=== PATIENT | male | born 1985 | race Caucasian/White ===

== ENCOUNTER 2018-08-15 10:47 | Emergency (ER) | payer BC, SELFPAY ==
--- OUTSIDE RECORDS SUMMARY | 2018-08-15 10:59 | XMS REPORT | Summary of Care ---
:1985 Author Organization [facility] Address [address] [place], [place] [address]- Encounter HQ Encntr_alias(FIN) [id number] Date(s): 04/22/17 - 04/22/17 [facility] [address] [place] [address]- Encounter Diagnosis Right upper quadrant pain (Final) - 04/28/17 Epigastric pain (Final) - Nausea with vomiting, unspecified (Final) - Abnormal weight loss (Final) - Discharge Disposition: Home or Self Care Attending Physician: Carter Shaikh MD Referring Physician: Carter Shaikh MD Vital Signs No data available for this section Problem List No data available for this section Allergies, Adverse Reactions, Alerts No data available for this section Medications No data available for this section Results No data available for this section Immunizations No data available for this section Procedures No data available for this section Social History No data available for this section Assessment and Plan No data available for this section
--- OUTSIDE RECORDS SUMMARY | 2018-08-15 10:59 | XMS REPORT | Continuity of Care Document ---
:1985 Author Organization [facility] [employer] [place] Care Team Providers Name Role Phone [facility] [employer] Unavailable Unavailable Problems Problem Status Onset Classification Date Comments Source Date Reported Right upper 03/16/2018 [facility] quadrant pain 8 R10.11 R10.13 Active [facility] R11.2 R63.4 8 Epigastric pain 03/16/2018 [facility] Nausea with 03/16/2018 [facility] vomiting, unspecified Abnormal weight 03/16/2018 [facility] loss Medications No Data Provided for This Section Allergies, Adverse Reactions, Alerts No Known Medication Allergies Immunizations No Data Provided for This Section Results No Data Provided for This Section Pathology Reports No Data Provided for This Section Diagnostic Reports Report Value Date Source Gallbladder scan HIDA w EXAM: Gallbladder HIDA scan 04/22/2017 [facility] [place] HISTORY: Nausea, vomiting, epigastric pain COMPARISON: None TECHNIQUE: Hepatobiliary scan is performed using 7 mCi of Tc-99m Choletec given IV right antecubital region. 1.8 mcg CCK given IV following 60 minutes; no symptoms reported. FINDINGS: Normal tracer activity in the liver, bile ducts, gallbladder, and small bowel loops. Gallbladder ejection fraction is 91% (normal greater than 50%). IMPRESSION: Normal HIDA scan and gallbladder ejection. SL: [id number] Consultation Notes No Data Provided for This Section Discharge Summaries No Data Provided for This Section History and Physicals No Data Provided for This Section Vital Signs No Data Provided for This Section Encounters Location Location Encounter Encounter Reason Attending ADM DC Status Source Details Type Number For Provider Date Date Visit [facility] Outpatient [id number] [facility] 04[facility]22 [facility] Procedures No Data Provided for This Section Assessment and Plan No Data Provided for This Section Plan of Care No Data Provided for This Section Social History Social History Date Source No data available for this 04/23/2017 [facility] section Family History No Data Provided for This Section Advance Directives No Data Provided for This Section Functional Status No Data Provided for This Section
--- OUTSIDE RECORDS SUMMARY | 2018-08-15 10:59 | XMS REPORT | Summary of Care ---
:1985 Author Organization [facility] Address [address] [place], [place] [address]- Encounter HQ Encntr_alias(FIN) [id number] Date(s): 04/22/17 - 04/22/17 [facility] [address] [place] [address]- Encounter Diagnosis Right upper quadrant pain (Final) [...]
--- NOTE | 2018-08-15 11:36 | RAD REPORT ---
EXAM DESCRIPTION: CT - Head Brain Wo Cont - 08/15/2018 11:29 am CLINICAL HISTORY: Acute onset visual changes COMPARISON: None. TECHNIQUE: Axial 5 mm thick images of the head were obtained without IV contrast. All CT scans are performed using dose optimization technique as appropriate and may include automated exposure control or mA/KV adjustment according to patient size. FINDINGS: No intracranial hemorrhage, mass, edema or shift of mid-line structures. No acute infarcti on changes seen. No abnormal extra-axial fluid collections. Ventricles are normal. Mastoid air cells are clear. Circumferential mucosal thickening present in the right maxillary sinus with thickening and sclerosis of the sinus black. No air-fluid level. No acute bony findings. IMPRESSION: No intracranial abnormality identified. Right maxillary chronic sinusitis.
[2018-08-15 11:53] LABS: ALT/SGPT 58 U/L (12-78); AST/SGOT 28 U/L (15-37); Albumin 4.2 g/dL (3.4-5.0); Alkaline Phosphatase 57 U/L (45-117); BUN Blood Urea Nitrogen 17 mg/dL (7-18); Bicarbonate 29 mmol/L (21-32); Bilirubin Total 0.7 mg/dL (0.2-1.0); Glucose Level 96 mg/dL (74-106); Protein, Total 7.7 g/dL (6.4-8.2); Sodium Level 140 mmol/L (136-145); Troponin (Emerg Dept Use Only) < 0.02 ng/mL (0.0-0.045)
--- NOTE | 2018-08-15 12:52 | ER ---
Nurse's Notes [facility] Name: Ramez Nguyen Age: 33 yrs Sex: Male : 1985 Arrival Date: 08/15/2018 Time: 10:48 Bed 16 Private MD: Diagnosis: Amaurosis fugax Presentation: 08/15 10:57 Presenting complaint: Patient states: at about 1000 this morning visual changes, was sg described as like tunnel vision in both eyes with darkened areas around the peripheral, pt denied and pain/n/v, no slurred speech no LOC, pt reports was signing documents when his vision just went crazy. Transition of care: patient was not received from another setting of care. Onset of symptoms was August 15, 2018. Risk Assessment: Do you want to hurt yourself or someone else? Patient reports no desire to harm self or others. Initial Sepsis Screen: Does the patient meet any 2 criteria? No. Patient's initial sepsis screen is negative. Does the patient have a suspected source of infection? No. Patient's initial sepsis screen is negative. Care prior to arrival: None. 10:57 Method Of Arrival: Ambulatory sg 10:57 Acuity: WENDY 3 sg 11:01 Note reports pain in forehead that radiates to back of head and neck, a 2/10. sg Historical: - Allergies: 11:00 Morphine; sg - Home Meds: 11:00 losartan oral oral [Active]; testosterone buccal buccal [Active]; "water pill"- I dont sg take it though, too strong [Active]; - PMHx: 11:01 Hypertension; sg - PSHx: 11:00 facial reconstruction; sg - Immunization history:: Adult Immunizations up to date. - Social history:: Smoking status: Patient/guardian denies using tobacco, Patient uses caffeine, Patient/guardian denies using alcohol, street drugs, Patient/guardian denies using The patient lives with family, with spouse. - Ebola Screening: : Patient negative for fever greater than or equal to 101.5 degrees Fahrenheit, and additional compatible Ebola Virus Disease symptoms Patient denies exposure to infectious person Patient denies travel to an Ebola-affected area in the 21 days before illness onset No symptoms or risks identified at this time. - Family history:: not pertinent. Screenin:05 VAN Screening: Arm Drift: Patient shows no arm weakness. Patient is VAN negative. Fall sg Risk None identified. 11:15 Abuse screen: Denies threats or abuse. Denies injuries from another. Nutritional ca1 screening: No deficits noted. Tuberculosis screening: No symptoms or risk factors identified. Assessment: 11:15 General: Appears in no apparent distress. comfortable, Behavior is calm, cooperative, ca1 appropriate for age. Pain: Denies pain. Neuro: Level of Consciousness is awake, alert, obeys commands, Oriented to person, place, time, situation, Sueding Machine Tender are equal bilaterally Moves all extremities. Gait is steady, Speech is normal, Facial symmetry appears normal. Cardiovascular: Heart tones S1 S2 present Capillary refill < 3 seconds Patient's skin is warm and dry. Respiratory: Airway is patent Respiratory effort is even, unlabored, Respiratory pattern is regular, symmetrical, Breath sounds are clear bilaterally. GI: Abdomen is flat, non-distended, Bowel sounds present X 4 quads. Abd is soft and non tender X 4 quads. : No deficits noted. No signs and/or symptoms were reported regarding the genitourinary system. EENT: Reports blurred vision. Derm: Skin is intact, is healthy with good turgor, Skin is pink, warm \\T\\ dry. Musculoskeletal: Circulation, motion, and sensation intact. Capillary refill < 3 seconds, Range of motion: intact in all extremities. 11:56 Reassessment: Patient appears in no apparent distress at this time. Patient and/or ca1 family updated on plan of care and expected duration. Pain level reassessed. Patient is alert, oriented x 3, equal unlabored respirations, skin warm/dry/pink. 12:50 Reassessment: Patient appears in no apparent distress at this time. Patient and/or ca1 family updated on plan of care and expected duration. Pain level reassessed. Patient is alert, oriented x 3, equal unlabored respirations, skin warm/dry/pink. 13:47 Reassessment: Patient appears in no apparent distress at this time. Patient and/or ca1 family updated on plan of care and expected duration. Pain level reassessed. Patient is alert, oriented x 3, equal unlabored respirations, skin warm/dry/pink. Called report to Nany Perkins RN with [facility]. 14:11 Reassessment: Patient appears in no apparent distress at this time. Patient is alert, ca1 oriented x 3, equal unlabored respirations, skin warm/dry/pink. Vital Signs: 11:01 BP 125 / 90; Pulse 85; Resp 17; Temp 97.6; Pulse Ox 100% on R/A; Weight 95.25 kg (R); sg Height 5 ft. 10 in. (177.80 cm); Pain 2/10; 11:56 BP 119 / 81; Pulse 82; Resp 16 S; Pulse Ox 97% on R/A; ca1 12:32 BP 120 / 82; Pulse 76; Resp 17 S; Pulse Ox 97% on R/A; ca1 13:31 BP 128 / 92; Pulse 62; Resp 17 S; Pulse Ox 98% on R/A; ca1 14:11 BP 122 / 85; Pulse 70; Resp 16 S; Temp 98(O); Pulse Ox 97% on R/A; ca1 11:01 Body Mass Index 30.13 (95.25 kg, 177.80 cm) sg NIH Stroke Scale Scores: 11:05 NIHSS Score: 0 ED Course: 10:48 Patient arrived in ED. as 10:51 Ward Murphy MD is Attending Physician. ma2 10:59 Triage completed. sg 10:59 Arm band placed on. sg 11:01 Christina Daugherty, RN is Primary Nurse. ca1 11:15 Patient has correct armband on for positive identification. Placed in gown. Bed in low ca1 position. Call light in reach. Side rails up X 1. Pulse ox on. NIBP on. Door closed. Lights dimmed. Warm blanket given. 11:18 No provider procedures requiring assistance completed. Inserted saline lock: 20 gauge ca1 in left antecubital area, using aseptic technique. Blood collected. 11:30 CT Head Brain wo Cont In Process Unspecified. EDMS 13:35 Patient transferred, IV remains in place. ca1 Administered Medications: 12:50 Drug: Aspirin 325 mg Route: PO; ca1 13:34 Follow up: Response: No adverse reaction ca1 Outcome: 12:51 ER care complete, transfer ordered by . ma2 14:12 Transferred by ground EMS to [facility], Transfer form completed. ca1 X-rays sent w/ patient. 14:12 Condition: stable 14:12 Instructed on the need for transfer. 14:13 Patient left the ED. ca1 NIH Stroke Scale - NIH Stroke Score Date: 08/15/2018 Time: 11:05 Total Score = 0 1a. Level of Consciousness (LOC) - 0(Alert) 1b. Level of Consciousness (LOC) (Year \\T\\ Age) - 0(Both) 1c. LOC Commands (Open \\T\\ Closes Eyes/Care Management Assistant) - 0(Both) 2. Best Gaze (Lateral Gaze Paresis) - 0(Normal) 3. Visual Field Loss - 0(No visual loss) 4. Facial Palsy - 0(Normal) 5a. Left Arm: Motor (10-second hold) - 0(No drift) 5b. Right Arm: Motor (10-second hold) - 0(No drift) 6a. Left Leg: Motor (5-second hold - always test supine) - 0(No drift) 6b. Right Leg: Motor (5-second hold - always test supine) - 0(No drift) 7. Limb Ataxia (finger/nose \\T\\ heel/winn - test with eyes open) - 0(Absent) 8. Sensory Loss (pinprick arms/legs/face) - 0(Normal) 9. Best Language: Aphasia (description/naming/reading) - 0(No aphasia) 10. Dysarthria (speech clarity - read or repeat words) - 0(Normal) 11. Extinction and Inattention (visual/tactile/auditory/spatial/personal) - 0(No abnormality) Initials: sg Signatures: Dispatcher [employer] Silvio Bolden RN RN sg Elicia Villaseñor Mohammad, MD MD ma2 Christina Daugherty RN RN ca1
--- NOTE | 2018-08-15 12:52 | EDPHYS ---
Physician Documentation [facility] Name: Ramez Nguyen Age: 33 yrs Sex: Male : 1985 Arrival Date: 08/15/2018 Time: 10:48 Bed 16 Private MD: ED Physician Ward Murphy HPI: 08/15 12:46 This 33 yrs old Male presents to ER via Ambulatory with complaints of Loss Of ma2 Vision, Confusion. 12:46 Onset: The symptoms/episode began/occurred suddenly, 2 hour(s) ago. Associated signs ma2 and symptoms: Pertinent negatives: None. dizziness, headache. Patient does not utilize any form of vision correction. Severity of symptoms: At their worst the symptoms were severe in the emergency department the symptoms have resolved. The patient has not experienced similar symptoms in the past. sudden loss of vision of right upper quadrant visual field of both eyes. this is resolved and now he is back no normal . Historical: - Allergies: 11:00 Morphine; sg - Home Meds: 11:00 losartan oral oral [Active]; testosterone buccal buccal [Active]; "water pill"- I dont sg take it though, too strong [Active]; - PMHx: 11:01 Hypertension; sg - PSHx: 11:00 facial reconstruction; sg - Immunization history:: Adult Immunizations up to date. - Social history:: Smoking status: Patient/guardian denies using tobacco, Patient uses caffeine, Patient/guardian denies using alcohol, street drugs, Patient/guardian denies using The patient lives with family, with spouse. - Ebola Screening: : Patient negative for fever greater than or equal to 101.5 degrees Fahrenheit, and additional compatible Ebola Virus Disease symptoms Patient denies exposure to infectious person Patient denies travel to an Ebola-affected area in the 21 days before illness onset No symptoms or risks identified at this time. - Family history:: not pertinent. ROS: 12:46 Constitutional: Negative for fever, chills, and weight loss. ma2 12:46 All other systems are negative. Exam: 12:46 Visual Acuity: Visual acuity is within normal limits. ma2 12:46 Constitutional: This is a well developed, well nourished patient who is awake, alert, and in no acute distress. Head/Face: Normocephalic, atraumatic. Eyes: Pupils equal round and reactive to light, extra-ocular motions intact. Lids and lashes normal. Conjunctiva and sclera are non-icteric and not injected. Cornea within normal limits. Periorbital areas with no swelling, redness, or edema. ENT: Nares patent. No nasal discharge, no septal abnormalities noted. Tympanic membranes are normal and external auditory canals are clear. Oropharynx with no redness, swelling, or masses, exudates, or evidence of obstruction, uvula midline. Mucous membranes moist. Neck: Trachea midline, no thyromegaly or masses palpated, and no cervical lymphadenopathy. Supple, full range of motion without nuchal rigidity, or vertebral point tenderness. No Meningismus. Chest/axilla: Normal chest wall appearance and motion. Nontender with no deformity. No lesions are appreciated. Cardiovascular: Regular rate and rhythm with a normal S1 and S2. No gallops, murmurs, or rubs. Normal PMI, no JVD. No pulse deficits. Respiratory: Lungs have equal breath sounds bilaterally, clear to auscultation and percussion. No rales, rhonchi or wheezes noted. No increased work of breathing, no retractions or nasal flaring. Abdomen/GI: Soft, non-tender, with normal bowel sounds. No distension or tympany. No guarding or rebound. No evidence of tenderness throughout. MS/ Extremity: Pulses equal, no cyanosis. Neurovascular intact. Full, normal range of motion. Neuro: Awake and alert, GCS 15, oriented to person, place, time, and situation. Cranial nerves II-XII grossly intact. Motor strength 5/5 in all extremities. Sensory grossly intact. Cerebellar exam normal. Normal gait. Vital Signs: 11:01 BP 125 / 90; Pulse 85; Resp 17; Temp 97.6; Pulse Ox 100% on R/A; Weight 95.25 kg (R); sg Height 5 ft. 10 in. (177.80 cm); Pain 2/10; 11:56 BP 119 / 81; Pulse 82; Resp 16 S; Pulse Ox 97% on R/A; ca1 12:32 BP 120 / 82; Pulse 76; Resp 17 S; Pulse Ox 97% on R/A; ca1 13:31 BP 128 / 92; Pulse 62; Resp 17 S; Pulse Ox 98% on R/A; ca1 14:11 BP 122 / 85; Pulse 70; Resp 16 S; Temp 98(O); Pulse Ox 97% on R/A; ca1 11:01 Body Mass Index 30.13 (95.25 kg, 177.80 cm) sg NIH Stroke Scale Scores: 11:05 NIHSS Score: 0 sg MDM: 10:51 Patient medically screened. ma2 12:46 Differential diagnosis: amorosis fugas, tia, needs neuro eval and tia workup, no [facility] neurology service available in our hospital will transfer for higher level of care. Data reviewed: vital signs, nurses notes. Counseling: I had a detailed discussion with the patient and/or guardian regarding: the historical points, exam findings, and any diagnostic results supporting the discharge/admit diagnosis, the presence of at least one elevated blood pressure reading (>120/80) during this emergency department visit, the need to transfer to another facility. Response to treatment: the patient's symptoms have resolved after treatment. 08/15 11:08 Order name: CMP; Complete Time: 12:23 [facility] 08/15 11:08 Order name: CT Head Brain wo Cont; Complete Time: 12:23 hi2 08/15 11:08 Order name: Pth,Intact; Complete Time: 12:23 hi2 08/15 11:08 Order name: Ptt, Activated; Complete Time: 12:23 hi2 08/15 11:08 Order name: Troponin (emerg Dept Use Only); Complete Time: 12:23 hi2 08/15 11:18 Order name: IV Saline Lock; Complete Time: 11:19 ca1 Administered Medications: 12:50 Drug: Aspirin 325 mg Route: PO; ca1 13:34 Follow up: Response: No adverse reaction ca1 Disposition: 08/15/18 12:[address] [facility]. Diagnosis is Amaurosis fugax. - Reason for transfer: Higher level of care. - Accepting physician is drs. Parkinson and Mirlande. - Condition is Stable. - Problem is new. - Symptoms are resolved. NIH Stroke Scale - NIH Stroke Score Date: 08/15/2018 Time: 11:05 Total Score = 0 1a. Level of Consciousness (LOC) - 0(Alert) 1b. Level of Consciousness (LOC) (Year \\T\\ Age) - 0(Both) 1c. LOC Commands (Open \\T\\ Closes Eyes/Vitreo Retinal Surgeon) - 0(Both) 2. Best Gaze (Lateral Gaze Paresis) - 0(Normal) 3. Visual Field Loss - 0(No visual loss) 4. Facial Palsy - 0(Normal) 5a. Left Arm: Motor (10-second hold) - 0(No drift) 5b. Right Arm: Motor (10-second hold) - 0(No drift) 6a. Left Leg: Motor (5-second hold - always test supine) - 0(No drift) 6b. Right Leg: Motor (5-second hold - always test supine) - 0(No drift) 7. Limb Ataxia (finger/nose \\T\\ heel/winn - test with eyes open) - 0(Absent) 8. Sensory Loss (pinprick arms/legs/face) - 0(Normal) 9. Best Language: Aphasia (description/naming/reading) - 0(No aphasia) 10. Dysarthria (speech clarity - read or repeat words) - 0(Normal) 11. Extinction and Inattention (visual/tactile/auditory/spatial/personal) - 0(No abnormality) Initials: sg Signatures: Dispatcher [employer] EDSilvio Alaniz, RN RN sg Ward Murphy MD MD ma2 Christina Daugherty RN RN ca1 Corrections: (The following items were deleted from the chart) 14:13 12:51 08/15/2018 12:[address] [facility]. ca1 Diagnosis is Amaurosis fugax. Reason for transfer: Higher level of care. Accepting physician is drs. Parkinson and Mirlande. Condition is Stable. Problem is new. Symptoms are resolved. ma2
[2018-08-15] MEDS ORDERED: ASPIRIN 325 MG TAB ONE (13:07)
== END 2018-08-15 14:13 | disposition short-term general hospital (02) ==
LOC: ER 10:47
DX: G45.3 Amaurosis fugax (principal); I10 Essential (primary) hypertension; Z88.5 Allergy status to narcotic agent
CPT/HCPCS: 36415; 70450; 80053; 83970; 84484; 85730; 99285